=== PATIENT | male | born 1945 | race Caucasian/White ===

== ENCOUNTER 2017-11-07 16:52 | Inpatient (IN) | payer OTHER ==
[~2017-11-07] VITALS: Ht 185.4 cm; Wt 53.2 kg
[~2017-11-07 16:52] MED LIST: ALEN35TA18 PO; ALPR0.5T PO; MONT5CHW17 PO; OMEP20TA PO
[2017-11-07] MEDS ORDERED: FLUT0.05 NAS (17:35)
[2017-11-07] MEDS ORDERED: HYDR-4683 PO (17:35)
[2017-11-07] MEDS ORDERED: ACET300T57 PO (17:35)
[2017-11-07] MEDS ORDERED: AZEL0.1S (17:35)
[2017-11-07] MEDS ORDERED: SENN1TAB14 PO (17:38)
[2017-11-07] MEDS ORDERED: IPRA1SOL3 IN (17:38)
[2017-11-07] MEDS ORDERED: MONT10TA34 PO (17:38)
[2017-11-07] MEDS ORDERED: OMEP20CA74 PO (17:38)
[2017-11-07] MEDS ORDERED: ONDA8TAB6 PO (17:38)
[2017-11-07] MEDS ORDERED: ALBU1AER4 IN (17:38)
[2017-11-07] MEDS ORDERED: CHOL20007 PO (17:38)
[2017-11-07] MEDS ORDERED: cefTRIAXone 1GM/10ml IVPUSH 10 ML IV ONE (18:00)
[2017-11-07] MEDS ORDERED: IPRATROPIUM BROM 0.5 MG/2.5ML INH SOL HHN ONE (18:00)
[2017-11-07] MEDS ORDERED: methylPREDNISolone SOD SUCC 125 MG/2 ML VL IV ONE (18:00)
[2017-11-07] MEDS ORDERED: ALBUTEROL SULF 2.5 MG/0.5ML(0.5%) NEB SOLN HHN ONE (18:00)
[2017-11-07 18:12] LABS: Mean Corpuscular Hgb Conc. 33.5 g/dL (32.0-36.0); Red Cell Distribution Width 18.3 % (11.8-14.3)
[2017-11-07 18:15] LABS: Hematocrit 35.8 % (41.0-53.0); Mean Corpuscular Hemoglobin 35.9 pg (28.0-32.0); Mean Corpuscular Volume 107.2 fL (80.0-100.0); Platelet Count (auto) 131 10^3/uL (140-450); Red Blood Cells 3.34 10^6/uL (4.5-5.90); White Blood Cell 5.9 10^3/uL (4.4-10.8)
[2017-11-07 18:20] LABS: Basophils % (manual) 0 (0.0-2.0); Blast Cells 0; Eosinophils % (manual) 0 (0-7); Metamyelocytes % 0; Myelocytes % 0; Promyelocytes % 0; Reactive Lymphocytes 0
[2017-11-07 19:04] LABS: Band Neutrophils % (manual) 4; Lymphocytes % (manual) 7 (10.0-50.0); Monocytes % (manual) 5 (0-12)
[2017-11-07 19:05] LABS: Chloride 110 mmol/L (98-107); Potassium 3.4 mmol/L (3.5-5.1); Sodium 144 mmol/L (136-145)
[2017-11-07 19:06] LABS: Alanine Aminotransferase 20 U/L (16-61); Alkaline Phosphatase 88 U/L (45-117); Anion Gap 8 (5-15); Aspartate Aminotransferase 22 U/L (15-37); Bilirubin, Total 0.9 mg/dL (0.2-1.0); Blood Urea Nitrogen 17 mg/dL (7-18); Carbon Dioxide 26 mmol/L (21-32); GFR African American 147 mL/min; GFR Non-African American 121 mL/min; Glucose 88 mg/dL (74-106)
[2017-11-07 19:07] LABS: Albumin 3.3 g/dL (3.4-5.0); Magnesium 2.2 mg/dL (1.6-2.6)
[2017-11-07] MEDS ORDERED: MORPHINE SULF INJ 2 MG/ML SYRINGE 1ML IV PRN (21:30)
[2017-11-07] MEDS ORDERED: POTASSIUM CHL 20 Meq TABLET PO ONE (21:30)
[2017-11-07] MEDS ORDERED: HYDROcodone-ACET 5/325MG TAB PO PRN (21:30)
[2017-11-07] MEDS ORDERED: IPRATROPIUM BROM 0.5 MG/2.5ML INH SOL NEB PRN (21:30)
[2017-11-07] MEDS ORDERED: ONDANSETRON HCL 4 MG/2 ML VIAL IV PRN (21:30)
[2017-11-07] MEDS ORDERED: NITROGLYCERIN 0.4 MG SL TAB SL PRN (21:30)
[2017-11-07] MEDS ORDERED: ACETAMINOPHEN 325 MG TAB PO PRN (21:30)
[2017-11-07] MEDS ORDERED: AZITHROMYCIN 500MG/ 250ML 250 ML IV ONE (21:30)
[2017-11-07] MEDS ORDERED: TEMAZEPAM 15 MG CAP PO PRN (21:30)
[2017-11-07] MEDS ORDERED: ALBUTEROL SULF 2.5 MG/0.5ML(0.5%) NEB SOLN NEB PRN (21:30)
[2017-11-07] MEDS: MONTELUKAST SODIUM 10 MG TAB PO SCH (22:17)
[2017-11-07 22:28] VITALS: BP 120/77
[2017-11-08 05:56] LABS: Urine Bacteria NONE SEEN /hpf (None Seen); Urine Blood Negative /uL (Negative); Urine Mucus FEW (None Seen); Urine WBC 1 /hpf (0 - 3)
[2017-11-08] MEDS ORDERED: cefTRIAXone 1GM/10ml IVPUSH 10 ML IV SCH (09:00)
[2017-11-08] MEDS ORDERED: PANTOPRAZOLE 40 MG TAB PO SCH (10:00)
[2017-11-08] MEDS ORDERED: ENOXAPARIN SOD 40 MG/0.4 ML SYRINGE SC SCH (10:00)
[2017-11-08] MEDS ORDERED: AZITHROMYCIN 500MG/ 250ML 250 ML IV SCH (10:00)
[2017-11-08 11:02] LABS: Basophils # (auto) 0 uL; Basophils % (auto) 0.1 % (0.0-2.0); Eosinophils # (auto) 0 uL; Hemoglobin 11.2 g/dL (13.5-17.5); Lymphocytes # (auto) 0.6 uL; Monocytes # (auto) 0.3 uL
[2017-11-08 11:05] LABS: Hematocrit 32.8 % (41.0-53.0); Mean Corpuscular Hemoglobin 36.6 pg (28.0-32.0); Mean Corpuscular Hgb Conc. 34.2 g/dL (32.0-36.0); Mean Corpuscular Volume 107.1 fL (80.0-100.0); Monocytes % (auto) 4.2 % (0.0-12.0); Neutrophils % (auto) 86.7 % (37.0-80.0); Platelet Count (auto) 119 10^3/uL (140-450); Red Blood Cells 3.06 10^6/uL (4.5-5.90); Red Cell Distribution Width 17.8 % (11.8-14.3); White Blood Cell 6.9 10^3/uL (4.4-10.8)
[2017-11-08 11:37] LABS: Potassium 3.9 mmol/L (3.5-5.1)
[2017-11-08 11:38] LABS: Albumin 2.8 g/dL (3.4-5.0); Bilirubin, Total 0.6 mg/dL (0.2-1.0); Calcium 7.8 mg/dL (8.5-10.1); Total Protein 5.6 g/dL (6.4-8.2)
[2017-11-08 15:06] VITALS: BP 91/54
[2017-11-08] MEDS: MONTELUKAST SODIUM 10 MG TAB PO SCH (21:53)
[2017-11-08 22:15] VITALS: BP 96/54
[2017-11-08 22:56] VITALS: BP 96/54
== END 2017-11-09 00:30 | disposition short-term general hospital (02) | DRG 190 ==
LOC: EDBD 16:52 → ER 16:52 → EDSEX 16:52 → TELE 16:53 → TELE-CENTR 11-08 14:00
PROVIDERS: ADMIT Nurse Practitioner; ATTEND Family Medicine
DX: J44.0 Chronic obstructive pulmonary disease with (acute) lower respiratory infection (principal); J18.1 Lobar pneumonia, unspecified organism; C20 Malignant neoplasm of rectum; E87.6 Hypokalemia; F17.210 Nicotine dependence, cigarettes, uncomplicated; K59.00 Constipation, unspecified; J44.1 Chronic obstructive pulmonary disease with (acute) exacerbation; I10 Essential (primary) hypertension; Z85.048 Personal history of other malignant neoplasm of rectum, rectosigmoid junction, and anus; Z92.21 Personal history of antineoplastic chemotherapy; Z79.899 Other long term (current) drug therapy
CPT/HCPCS: 36415; 71046; 80053; 81001; 83605; 83735; 83880; 84484; 85007; 85025; 85027; 87040; 93005; 94640; 94761; 96365; 96375; 96376